=== PATIENT | male | born 1965 | race Caucasian/White ===

== ENCOUNTER 2016-09-30 05:15 | Emergency (ER) | payer OTHER ==
[~2016-09-30] VITALS: Ht 175.3 cm; Wt 75.7 kg
[~2016-09-30 05:15] MED LIST: DOCU-67 PO
[2016-09-30 05:25] VITALS: BP 163/109
--- NOTE | 2016-09-30 06:13 | NUR ---
51 Y/O M W/C/O PAIN TO L CALF X 3 DAYS. DENIES ANY INJURY, OR SOB. PT ON MONITOR, DENIES ANY MED HX. ON YARD JOCKEY, ER MADE AWARE.
--- NOTE | 2016-09-30 06:14 | NUR ---
PT TAKEN TO BED 7
--- NOTE | 2016-09-30 07:00 | NUR ---
Dr. Escamilla evaluating patient at bedside.
--- NOTE | 2016-09-30 07:09 | NUR ---
Pt report given to EFFIE JHAVERI. Transfer of care at this time.
[2016-09-30] MEDS ORDERED: KETOROLAC 60 MG/2 ML VIAL IM ONE (07:10)
[2016-09-30] MEDS ORDERED: ACETAMINOPHEN EXTRA STRENGTH 500 MG TAB PO ONE (07:10)
[2016-09-30] MEDS ORDERED: CYCLOBENZAPRINE 10 MG TAB PO ONE (07:10)
--- NOTE | 2016-09-30 07:19 | NUR ---
Ultrasound at bedside.
--- NOTE | 2016-09-30 07:37 | NUR ---
PT AMBULATED TO RESTROOM.
--- NOTE | 2016-09-30 07:43 | NUR ---
Pt placed in position of comfort. All needs addressed.
--- NOTE | 2016-09-30 08:20 | NUR ---
Patient discharged with v/s stable. Written and verbal after care instructions given and explained. Patient alert, oriented and verbalized understanding of instructions. Ambulatory with steady gait. All questions addressed prior to discharge. ID band removed. Patient advised to follow up with PMD. Rx of NORCO AND FLEXERIL given. Patient educated on indication of medication including possible reaction and side effects. Opportunity to ask questions provided and answered.
[2016-09-30 08:21] VITALS: BP 148/97
== END 2016-09-30 08:20 | disposition home or self-care (01) ==
LOC: MED 05:15
DX: R25.2 Cramp and spasm (principal)
CPT/HCPCS: 93926; 93971; 96372; 99284; J1885; Q0092

== ENCOUNTER 2017-08-24 19:30 | Emergency (ER) | payer OTHER ==
[~2017-08-24] VITALS: Ht 175.3 cm; Wt 81.6 kg
[2017-08-24 19:30] VITALS: BP 157/100
[~2017-08-24 19:30] MED LIST changes: +DOCU-299 PO; -DOCU-67 PO
[2017-08-24] MEDS: KETOROLAC 60 MG/2 ML VIAL IM ONE (21:05)
[2017-08-24 22:30] VITALS: BP 127/81
[2017-08-24] MEDS: LIDOCAINE/EPI 1% 1:100000 20 ML VIAL INJ ONE (22:38)
== END 2017-08-24 22:30 | disposition home or self-care (01) ==
LOC: MED 19:30
DX: S01.01XA Laceration without foreign body of scalp, initial encounter (principal); M19.90 Unspecified osteoarthritis, unspecified site; Z79.899 Other long term (current) drug therapy; Z87.442 Personal history of urinary calculi; W22.8XXA Striking against or struck by other objects, initial encounter; Y93.89 Activity, other specified; Y92.89 Other specified places as the place of occurrence of the external cause; Y99.8 Other external cause status
CPT/HCPCS: 12002; 70450; 72125; 90471; 90715; 96372; 99284; J1885; J2001

== ENCOUNTER 2017-08-28 09:18 | Emergency (ER) | payer OTHER ==
[~2017-08-28] VITALS: Ht 175.3 cm; Wt 79.2 kg
[2017-08-28 09:36] VITALS: BP 146/83
--- NOTE | 2017-08-28 09:42 | NUR ---
AMBULATE TO BED 9, REPORT GIVEN TO DAVI VYAS
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
--- NOTE | 2017-08-28 10:00 | NUR ---
Patient being evaluated by physician at bedside.
[2017-08-28 10:17] VITALS: BP 144/80
== END 2017-08-28 10:17 | disposition home or self-care (01) ==
LOC: MED 09:18
DX: S01.01XD Laceration without foreign body of scalp, subsequent encounter (principal); Z87.442 Personal history of urinary calculi; Z79.899 Other long term (current) drug therapy; M19.90 Unspecified osteoarthritis, unspecified site; W22.8XXA Striking against or struck by other objects, initial encounter; Y93.89 Activity, other specified; Y92.89 Other specified places as the place of occurrence of the external cause; Y99.8 Other external cause status
CPT/HCPCS: 99283

== ENCOUNTER 2017-12-07 22:34 | Emergency (ER) | payer OTHER ==
[~2017-12-07] VITALS: Ht 175.3 cm; Wt 76.2 kg
[2017-12-07 22:38] VITALS: BP 140/85
--- NOTE | 2017-12-07 22:42 | NUR ---
PT FILED REPORT WITH [place] PD # [id number]
--- NOTE | 2017-12-07 22:42 | NUR ---
PT ASSISTED BACK TO LOBBY. PT IN STABLE CONDITION.
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
--- NOTE | 2017-12-08 00:22 | NUR ---
PT ASLEEP IN BED, AROUSABLE. COMFORTABLE DENIES PAIN @ THIS TIME, WILL CONTINUE TO MONITOR.
--- NOTE | 2017-12-08 00:44 | NUR ---
Dr. Ureña evalauting patient at bedside.
[2017-12-08] MEDS ORDERED: KETOROLAC 30 MG/ML VIAL IM ONE (00:55)
--- NOTE | 2017-12-08 01:20 | NUR ---
XRAY AT BEDSIDE
--- NOTE | 2017-12-08 01:48 | NUR ---
Patient discharged with v/s stable. Written and verbal after care instructions given and explained. Patient alert, oriented and verbalized understanding of instructions. Ambulatory with steady gait. All questions addressed prior to discharge. ID band removed. Patient advised to follow up with PMD. Rx of NAPROSYN 500 MG given. Patient educated on indication of medication including possible reaction and side effects. Opportunity to ask questions provided and answered.
[2017-12-08 01:49] VITALS: BP 136/91
== END 2017-12-08 01:48 | disposition home or self-care (01) ==
LOC: MED 22:34
DX: R07.89 Other chest pain (principal)
CPT/HCPCS: 71045; 96372; 99283; J1885; Q0092

== ENCOUNTER 2018-02-26 23:55 | Emergency (ER) | payer OTHER ==
[~2018-02-26] VITALS: Ht 175.3 cm; Wt 74.8 kg
[2018-02-27 00:09] VITALS: BP 124/78
--- NOTE | 2018-02-27 00:14 | NUR ---
MEGHA BOSCH AT BEDSIDE FOR MSE
[2018-02-27] MEDS ORDERED: SILVER NITRATE APPLICATOR 1 EA SWAB TP ONE (00:20)
--- NOTE | 2018-02-27 00:21 | NUR ---
SILVER NITRATE APPLICATOR AT BEDSIDE FOR
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
[2018-02-27 01:18] VITALS: BP 114/78
--- NOTE | 2018-02-27 01:18 | NUR ---
Patient discharged with v/s stable. Written and verbal after care instructions given and explained. Patient alert, oriented and verbalized understanding of instructions. Ambulatory with steady gait. All questions addressed prior to discharge. ID band removed. Patient advised to follow up with PMD. Rx of OCEAN 0.65% NASAL SOLUTION given. Patient educated on indication of medication including possible reaction and side effects. Opportunity to ask questions provided and answered.
== END 2018-02-27 01:18 | disposition home or self-care (01) ==
LOC: MED 23:55
DX: R04.0 Epistaxis (principal); R42 Dizziness and giddiness; R11.0 Nausea; Z79.899 Other long term (current) drug therapy; Z87.442 Personal history of urinary calculi
CPT/HCPCS: 30901; 99283; 99284

== ENCOUNTER 2019-05-12 09:41 | Emergency (ER) | payer OTHER ==
[~2019-05-12] VITALS: Ht 175.3 cm; Wt 77.1 kg
[2019-05-12 09:50] VITALS: BP 100/62
[2019-05-12 09:55] VITALS: BP 113/79
--- NOTE | 2019-05-12 10:23 | NUR ---
54 Y/O M C/O COUGHING, NAUSEA, FEVER X 3 DAYS. PT WENT TO URGENT CARE AND WAS GIVEN ABX, COUGH MEDICINE. PT STATES HE IS FEELING WORSE, PAIN WITH COUGHING IN ABDOMEN. PT PUT IN GOWN OXYGEN 98% ROOM AIR, LUNG SOUNDS CLEAR THROUGHOUT. EILEEN
--- NOTE | 2019-05-12 11:04 | NUR ---
PT RESTING IN BED, SIDE RAIL X1
--- NOTE | 2019-05-12 12:13 | NUR ---
PT RESTING IN BED, SIDE RAIL X1
[2019-05-12 12:44] VITALS: BP 113/79
--- NOTE | 2019-05-12 12:44 | NUR ---
Patient discharged with v/s stable. Written and verbal after care instructions given and explained. Patient verbalized understanding. Ambulatory with steady gait. All questions addressed prior to discharge. Advised to follow up with PMD.
== END 2019-05-12 12:44 | disposition home or self-care (01) ==
LOC: MED 09:41
DX: J06.9 Acute upper respiratory infection, unspecified (principal)
CPT/HCPCS: 71046; 99283

== ENCOUNTER 2019-05-18 12:08 | Inpatient (IN) | payer OTHER ==
[~2019-05-18] VITALS: Ht 175.3 cm; Wt 75.3 kg
[2019-05-18 12:17] VITALS: BP 136/87
[2019-05-18] MEDS ORDERED: ASPIRIN 81 MG TAB.CHEW PO ONE ×2 (12:30→15:45)
[2019-05-18] MEDS ORDERED: NACL 0.9% 1,000 ML IV ONE (12:30)
[2019-05-18] MEDS ORDERED: KETOROLAC 30 MG/ML VIAL IVP ONE (12:30)
[2019-05-18 13:00] LABS: BASOPHILS % (AUTO) 0.6 % (0.0-2.0); EOSINOPHILS % (AUTO) 0.8 % (0.0-4.0); HEMATOCRIT 50.6 % (36-52); HEMOGLOBIN 16.6 g/dL (12.0-18.0); LYMPHOCYTES # (AUTO) 1.4 K/uL (2.0-11.5); LYMPHOCYTES % (AUTO) 33.6 % (20.5-51.1); MEAN CORPUSCULAR HEMOGLOBIN 29 pg (27-31); MEAN CORPUSCULAR HGB CONC 33 g/dL (33-37); MEAN CORPUSCULAR VOLUME 88.9 fL (80-94); MONOCYTES # (AUTO) 0.5 K/uL (0.8-1.0); MONOCYTES % (AUTO) 10.9 % (1.7-9.3); NEUTROPHILS # (AUTO) 2.3 K/uL (1.8-7.7); NEUTROPHILS % (AUTO) 54.1 % (42.2-75.2); PLATELET COUNT (AUTO) 278 K/uL (140-450); RED BLOOD CELL COUNT(AUTO) 5.69 MIL/uL (4.20-6.10); RED CELL DISTRIBUTION WIDTH 14.3 % (11.6-13.7); WHITE BLOOD COUNT (AUTO) 4.3 K/uL (4.8-10.8)
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
[2019-05-18 13:16] LABS: ALBUMIN 3.8 g/dL (3.4-5.0); ANION GAP 14.2 (8-16); CARBON DIOXIDE 26.2 mmol/L (21-32); CREATININE 0.9 mg/dL (0.6-1.3); POTASSIUM 4.4 mmol/L (3.5-5.1); TOTAL BILIRUBIN 0.3 mg/dL (0.0-1.0)
[2019-05-18] MEDS ORDERED: LORazepam 2 MG/ML VIAL IVP ONE (14:10)
[2019-05-18] MEDS ORDERED: MORPHINE SULFATE 2 MG/ML SYR IVP ONE (15:40)
[2019-05-18] MEDS ORDERED: METOPROLOL 5 MG/5 ML VIAL IVP ONE (15:40)
[2019-05-18] MEDS ORDERED: NITROGLYCERIN 2% 1 GM PKT TP ONE (15:40)
[2019-05-18] MEDS ORDERED: IPRATROPIUM 0.02% 0.5 MG/2.5 ML NEBU INH PRN (16:00)
[2019-05-18] MEDS ORDERED: diphenhydrAMINE 50 MG/ML VIAL IVP PRN (16:00)
[2019-05-18] MEDS ORDERED: MAG SULF 2000 MG/WATER PREMIX 50 ML IV PRN (16:00)
[2019-05-18] MEDS ORDERED: BISACODYL 10 MG SUPP RC PRN (16:00)
[2019-05-18] MEDS ORDERED: cloNIDine 0.1 MG TAB PO PRN (16:00)
[2019-05-18] MEDS ORDERED: MAGNESIUM OXIDE 400 MG TAB PO PRN (16:00)
[2019-05-18] MEDS ORDERED: HYDROcodone/APAP 5/325 MG 1 TAB TAB PO PRN ×2 (16:00)
[2019-05-18] MEDS ORDERED: ZOLPIDEM 5 MG TAB PO PRN (16:00)
[2019-05-18] MEDS ORDERED: POTASSIUM CHLORIDE 10 MEQ TABER PO PRN (16:00)
[2019-05-18] MEDS ORDERED: ALUMINUM HYD/MAG/SIMETHICONE 30 ML UDC PO PRN (16:00)
[2019-05-18] MEDS ORDERED: ACETAMINOPHEN 650 MG SUPP RC PRN (16:00)
[2019-05-18] MEDS ORDERED: LORazepam 2 MG/ML VIAL IVP PRN (16:00)
[2019-05-18] MEDS ORDERED: guaiFENesin DM 200/20 MG-10 ML 10 ML UDC PO PRN (16:00)
[2019-05-18] MEDS ORDERED: SODIUM PHOSPHATE 118 ML ENEM RC PRN (16:00)
[2019-05-18] MEDS ORDERED: ONDANSETRON 4 MG/2 ML VIAL IVP PRN (16:00)
[2019-05-18] MEDS ORDERED: ALBUTEROL 0.083% 2.5 MG/3 ML NEBU INH PRN (16:00)
[2019-05-18] MEDS ORDERED: DOCUSATE SODIUM 250 MG GELCAP PO PRN (16:00)
[2019-05-18] MEDS ORDERED: MORPHINE SULFATE 2 MG/ML SYR IVP PRN (16:00)
[2019-05-18 17:00] VITALS: BP 124/76
--- NOTE | 2019-05-18 17:00 | NUR ---
Patient will be admitted to care of DR VINES. Admited to TELE. Will go to room 119A. Belongings list completed. Report to DAVI MORFIN.
--- NOTE | 2019-05-18 17:00 | NUR ---
RECEIVED BEDSIDE REPORT FROM ER NURSE, WU, PT IS STABLE, R AC 22G SALINE LOCK, AMBULATED FROM GURNEY TO BED, NO SIGNS OF RESPIRATORY DISTRESS NOTED, AA0X4, INTRODUCE SELF, INTRODUCE PT TO ROOM, UPDATE WHITE BOARD, AT BEDSIDE, CALL LIGHT WITHIN REACH.
--- NOTE | 2019-05-18 19:30 | NUR ---
GAVE BEDSIDE REPORT TO NIGHT NURSE FOR CONTINUITY OF CARE, PT IS STABLE
[2019-05-18 20:00] VITALS: BP 96/58
[2019-05-18] MEDS: ACETAMINOPHEN 325 MG TAB PO PRN (21:27)
--- NOTE | 2019-05-18 21:35 | NUR ---
PT COMPLAINING OF HEADACHE AND NAUSEATED BUT NO VOMITING, MEDICATED WITH TYLENOL AND ZOFRAN, DENIES CHEST PAIN, NO SOB NOTED, MONITORED CLOSELY.
--- NOTE | 2019-05-18 22:30 | NUR ---
PT COMPLAINING OF HEADACHE AND CHEST PAIN 10/17, PUT ON O2 2L NC, VITAL SIGNS TAKEN:BP-128/85, HR-57, RR-18, SAT-97%, MEDICATED PRN WITH MORPHINE IVP, MONITORED CLOSELY.
[2019-05-18] MEDS ORDERED: LOVENOX 1MG/KG Q12H SUBQ ONE (22:38)
[2019-05-18] MEDS ORDERED: NITROGLYCERIN 2% 1 GM PKT TP PRN (22:40)
--- NOTE | 2019-05-18 22:47 | NUR ---
CRITICAL TROPONIN RESULT RELAYED TO DR VINES, NEW ORDERS RECEIVED, CHARGE NURSE ASAEL AND HYDRAULICS TEACHER MADE AWARE OF TX ORDER TO ICU.
--- NOTE | 2019-05-18 23:05 | NUR ---
PT RECEIVED FROM WILY TOMLINSON. PT TRANSFERRED FROM TELEMETRY TO ICU 3. NO DISTRESS NOTED. PT AWAKE, ALERT, LETHARGIC. CALM AND COOPERATIVE. HEART SOUNDS HEARD S1&S2. BRADYCARDIA ON MONITOR. LUNG SOUNDS CLEAR. RESPIRATIONS EVEN AND UNLABORED. ABDOMEN SOFT AND ROUND, BOWEL SOUNDS ACTIVE. PT C/O OF 7/10 CHEST PAIN. IV SITE L AC 22 GAUGE, INTACT, GOOD BLOOD RETURN. ABLE TO USE URINAL. SKIN INTACT, WARM AND DRY, CAP REFILL LESS THAN 2 SECONDS. HOB 30 DEGREES. BED LOCKED IN LOWEST POSITION. WILL CONTINUE TO MONITOR.
--- NOTE | 2019-05-18 23:05 | NUR ---
PT AWAKE VERBALLY RESPONSIVE, TRANSFERRED TO ICU BED 3 ACCOMPANIED BY , ABLE TO TRANSFER SELF TO BED, REPORT GIVEN TO DAVI WOLF.
[2019-05-18] MEDS ORDERED: ENOXAPARIN 80 MG/0.8 ML SYR SUBQ SCH (23:30)
[2019-05-18] MEDS ORDERED: NACL 0.9% 500 ML IV ONE (23:40)
[2019-05-18] MEDS ORDERED: NITROGLYCERIN 0.4 MG TAB SL PRN (23:40)
[2019-05-18] MEDS ORDERED: NITROGLYCERIN 0.1 MG/HR PATCH TD SCH (23:40)
[2019-05-19] VITALS (45 sets, daily range): BP systolic 99–144; BP diastolic 61–90
[2019-05-19] MEDS ORDERED: MORPHINE SULFATE 4 MG/ML SYR IVP SCH
--- NOTE | 2019-05-19 | NUR ---
PHONE CALL FROM DR MOLINA; CASE HARDENER, UPDATED ON PTS PRESENT CONDITION.QUESTIONS ANSWERED.MD ALSO MADE AWARE THAT PTS SAID PT WAS HAVING COUGH X 5DAYS. ORDERS RECEIVED TO START PT ON HEPARIN DRIP AND NITROGLYCERIN DRIP
[2019-05-19] MEDS ORDERED: HEPARIN PER PHARMACY MC PRN (00:05)
[2019-05-19] MEDS ORDERED: hePARIN / DEXT 5% PREMIX 250 ML IV SCH ×2 (00:05→11:00)
[2019-05-19] MEDS ORDERED: NITROGLYCERIN 50 MG/D5W PREMIX 250 ML IV PRN (00:05)
--- NOTE | 2019-05-19 00:16 | NUR ---
NITROGLYCERIN DRIP STARTED AT 5MCG/KG/MIN, DRY WEIGHT 74.7 KG. WILL CONTINUE TO MONITOR. Addendum: 05/19/19 at 0152 by Harvinder Dye RN CHARTED ON WRONG TIME, CORRECT TIME NITRO DRIP STARTED AT 0116
--- NOTE | 2019-05-19 00:32 | NUR ---
PHONE CALL TO DR Matt ORELLANA; MADE AWARE THAT PHARMACIST CALLED AND WE CAN NOT START THE HEPARIN DRIP UNTIL MORNING SINCE PT ALREADY RECEIVED LOVENOX 80MG SUBQ; SAID OK
--- NOTE | 2019-05-19 01:13 | NUR ---
PHONE CALL TO DR Matt ORELLANA,MANAGER HVAC. HR OF PT IS 50 PER PROTOCOL OF NITROGLYCERIN DRIP; HOLD IF HR 60.DR ORELLANA SAID TO GO AHEAD AND START THE NITROGLYCERIN DRIP.
--- NOTE | 2019-05-19 01:16 | NUR ---
NITROGLYCERIN DRIP STARTED AT 5MCG/KG/MIN, DRY WEIGHT 74.7 KG. WILL CONTINUE TO MONITOR.
--- NOTE | 2019-05-19 03:15 | NUR ---
PT HAS EYES CLOSED, RESPIRATIONS EVEN AND UNLABORED. CHEST RISE IS SYMMETRICAL. VITALS SIGNS STABLE. WILL CONTINUE TO MONITOR.
--- NOTE | 2019-05-19 05:47 | NUR ---
SPOKE WITH PHARMACY. BECAUSE LOVENOX WAS GIVEN AT 2300, PHARMACY SAID OKAY TO START HEPARIN DRIP AT 1100.
[2019-05-19 06:56] LABS: PROTHROMBIN TIME 10.6 secs (10.8-13.4)
--- NOTE | 2019-05-19 07:15 | NUR ---
REPORT GIVEN TO AM SHIFT NURSE FOR CONTINUITY OF CARE.
--- NOTE | 2019-05-19 07:20 | NUR ---
RECEIVED BEDSIDE REPORT FROM BACK HOE MACHINE OPERATOR RN, LUCIANO. PT IS SLEEPING, EASILY ROUSED, OX4. DENIES CHEST PAIN AND NAUSEA AT THIS TIME. L AC 22G RUNNING NITROGLYCERIN AT 5MCG/MIN. R FA 20G, FLUSHED, PATENT, SL. S1S2 HEARD, SB ON MONITOR, LUNG SOUNDS CLEAR. BOWELS SOUNDS ACTIVE. CALL LIGHT WITHIN REACH.
[2019-05-19] MEDS: ACETAMINOPHEN 325 MG TAB PO PRN (07:50)
--- NOTE | 2019-05-19 07:54 | NUR ---
PATIENT HAS BEEN SCREENED AND CATEGORIZED MODERATE NUTRITION RISK. PATIENT WILL BE SEEN WITHIN 3-5 DAYS OF ADMISSION. 05/21/19 - 05/23/19 HERO KIRAN MBA,RD
--- NOTE | 2019-05-19 08:00 | NUR ---
PT C/O HEADACHE, TYLENOL GIVEN. ASSISTED PT STANDING UP AND USED URINAL.
[2019-05-19 08:37] LABS: BASOPHILS % (AUTO) 0.4 % (0.0-2.0); EOSINOPHILS % (AUTO) 0.5 % (0.0-4.0); HEMATOCRIT 42.5 % (36-52); HEMOGLOBIN 13.7 g/dL (12.0-18.0); LYMPHOCYTES # (AUTO) 1.4 K/uL (2.0-11.5); LYMPHOCYTES % (AUTO) 22.2 % (20.5-51.1); MEAN CORPUSCULAR HEMOGLOBIN 29 pg (27-31); MEAN CORPUSCULAR HGB CONC 32 g/dL (33-37); MEAN CORPUSCULAR VOLUME 89.6 fL (80-94); MONOCYTES # (AUTO) 0.6 K/uL (0.8-1.0); MONOCYTES % (AUTO) 9.5 % (1.7-9.3); NEUTROPHILS # (AUTO) 4.1 K/uL (1.8-7.7); NEUTROPHILS % (AUTO) 67.4 % (42.2-75.2); PLATELET COUNT (AUTO) 262 K/uL (140-450); RED BLOOD CELL COUNT(AUTO) 4.75 MIL/uL (4.20-6.10); RED CELL DISTRIBUTION WIDTH 14.1 % (11.6-13.7); WHITE BLOOD COUNT (AUTO) 6.1 K/uL (4.8-10.8)
[2019-05-19] MEDS ORDERED: ASPIRIN 81 MG TAB.CHEW PO SCH (09:00)
[2019-05-19] MEDS ORDERED: LOVENOX 1MG/KG Q12H SUBQ SCH (09:00)
[2019-05-19] MEDS ORDERED: CARVEDILOL 3.125 MG TAB PO SCH (09:00)
[2019-05-19] MEDS ORDERED: ATORVASTATIN 20 MG TAB PO SCH (09:08)
--- NOTE | 2019-05-19 09:17 | NUR ---
DR VINES SEEN AND ASSESSED PT. AWARE OF THE TROP TRENDING DOWN TO 12.205
--- NOTE | 2019-05-19 09:42 | NUR ---
DR REYNA Fontana CAME AND ASSESSED PT. DR ORELLAAN SAID TO HOLD COREG PER PARAMETER IF HR LESS THAN 60. KEEP PT NPO. ALSO DO NOT START HEPARIN DRIP SINCE PT IS GETTING TRANSFERRED FOR ONCOLOGY RADIATION PHYSICIAN.
--- NOTE | 2019-05-19 10:47 | NUR ---
CALLED [facility] SPOKE WITH THU ,NOTIFIED HER THAT PATIENT HAS A TRANSFER ORDER FOR CARDIAC CATH. PER THU PROVIDED AN AUTH FOR TRANSPORT [id number] AND AUTH FOR [place] [id number]. CALLED [facility] SPOKE WITH SOO ISIDRO GONSALVES AT [phone] NOTIFIED HER THAT PT NEEDS CARDIAC CATH TO BE DONE [place] ACCEPTING DR WILL BE DR ROBB AND CIGAR TOBACCO PROCESSING SUPERVISOR WILL BE DR REYNA Fontana AND ALSO DR VINES SPOKE WITH HER AND EXPLAIN THE URGENT FOR CARDIAC CATH. PER BRINA SHE HAS NO TELE BED AT THIS TIME BUT WILL TRY HE BEST TO GET THE PATIENT TODAY. FAXED TO [facility] [phone] DR MACE AND CIGAR TOBACCO PROCESSING SUPERVISOR DR REYNA Fontana CHARGE NURSE TO FOLLOW
[2019-05-19] MEDS ORDERED: DEXT 5% / NACL 0.9% 500 ML IV SCH (10:50)
--- NOTE | 2019-05-19 11:05 | NUR ---
CONFIRMED WITH DR ORELLNAA, STOP NITROGLYCERIN DRIP PRIOR TO TRANSFER. PT WILL GO TO TUB OPERATOR STRAIGHT.
--- NOTE | 2019-05-19 11:10 | NUR ---
CALLED GEOVANY IN [facility], REPORT GIVEN.
[2019-05-19] MEDS ORDERED: ATOR20TA PO (11:13)
[2019-05-19] MEDS ORDERED: ASPI-1718 PO (11:13)
[2019-05-19] MEDS ORDERED: CARV3.12 PO (11:15)
--- NOTE | 2019-05-19 11:17 | NUR ---
[facility] IS HERE PICKING UP PT.
--- NOTE | 2019-05-19 11:25 | NUR ---
PT LEFT WITH HIS BELONGINGS WITH [facility], AT BEDSIDE, TO [facility] SUSTAINABLE LANDSCAPE ARCHITECT. DR ORELLANA IS AWARE.
== END 2019-05-19 11:25 | disposition short-term general hospital (02) | DRG 190 ==
LOC: MED 12:08 → MTU 16:00 → MIC 22:56
PROVIDERS: ADMIT Internal Medicine Pulmonary Disease; ATTEND Internal Medicine Pulmonary Disease
DX: I21.4 Non-ST elevation (NSTEMI) myocardial infarction (principal); M19.90 Unspecified osteoarthritis, unspecified site; I20.0 Unstable angina; Z87.442 Personal history of urinary calculi
CPT/HCPCS: 36415; 71045; 80053; 82948; 84484; 85025; 85610; 85730; 87081; 93005; 96361; 96374; 96375; 99291; J1650; J1885; J2060; J2270; J2405; J3490; J7030; J7042; Q0092

== ENCOUNTER 2020-12-27 18:16 | Emergency (ER) | payer OTHER ==
[~2020-12-27 18:16] MED LIST changes: +ASPI-1822 PO; +ATOR20TA PO; +CARV3.12 PO
--- NOTE | 2020-12-27 19:20 | NUR ---
CALLED PATIENT BACK FOR TRIAGE, NO RESPONSE.
--- NOTE | 2020-12-27 20:00 | NUR ---
CALLED PATIENT BACK FOR TRIAGE, NO RESPONSE.
--- NOTE | 2020-12-27 20:30 | NUR ---
PATIENT LEFT WITHOUT BEING SEEN BY DR. LERNER. NO FURTHER CARE PROVIDED FOR PATIENT.
== END 2020-12-27 20:30 | disposition left against medical advice (07) ==
LOC: MED 18:16
DX: Z53.21 Procedure and treatment not carried out due to patient leaving prior to being seen by health care provider (principal)

== ENCOUNTER 2021-01-13 21:00 | Emergency (ER) | payer OTHER ==
[~2021-01-13] VITALS: Ht 175.3 cm; Wt 72.6 kg
[2021-01-13 21:05] VITALS: BP 129/76
--- NOTE | 2021-01-13 21:05 | NUR ---
to bed via wheelchair
--- NOTE | 2021-01-13 21:10 | NUR ---
PT. IS A 56 Y/O MALE THAT CAME INTO ED WITH C/O OF RIGHT SIDE FLANK PAIN. PT. STATES PAIN IS LOCALIZED IN RIGHT SIDE FLANK. PT. RATES PAIN AT 10/10 ON THE PAIN SCALE AT THIS TIME. PT. STATES THAT THE PAIN WAS A SUDDEN ONSET OF PAIN 4 HOURS AGO. DENIES N/V/D/FEVER. SKIN IS PINK/WARM/DRY; AAOX4 WITH EVEN AND STEADY GAIT; HR EVEN AND REGULAR; PT DENIES ANY FEVER, CP, SOB, OR COUGH AT THIS TIME; VSS; PATIENT POSITIONED FOR COMFORT; HOB ELEVATED; BEDRAILS UP X2; BED DOWN. ER MD MADE AWARE OF PT STATUS. PMH: DIABETES AND "HEART SURGERIES" ALLERGIES: NKA
--- NOTE | 2021-01-13 21:28 | NUR ---
Dr. Romo examining patient.
--- NOTE | 2021-01-13 22:02 | NUR ---
XRAY AT BEDSIDE
[2021-01-13 22:18] LABS: BASOPHILS % (AUTO) 0.5 % (0.0-2.0); EOSINOPHILS # (AUTO) 0.1 K/uL (0-0.4); EOSINOPHILS % (AUTO) 1.1 % (0.0-4.0); HEMATOCRIT 40.5 % (36-52); HEMOGLOBIN 13.2 g/dL (12.0-18.0); LYMPHOCYTES # (AUTO) 1.1 K/uL (2.0-11.5); LYMPHOCYTES % (AUTO) 23.1 % (20.5-51.1); MEAN CORPUSCULAR HEMOGLOBIN 30 pg (27-31); MEAN CORPUSCULAR HGB CONC 33 g/dL (33-37); MEAN CORPUSCULAR VOLUME 90.5 fL (80-94); MONOCYTES # (AUTO) 0.4 K/uL (0.8-1.0); MONOCYTES % (AUTO) 8.5 % (1.7-9.3); NEUTROPHILS # (AUTO) 3.1 K/uL (1.8-7.7); NEUTROPHILS % (AUTO) 66.8 % (42.2-75.2); PLATELET COUNT (AUTO) 219 K/uL (140-450); RED BLOOD CELL COUNT(AUTO) 4.48 MIL/uL (4.20-6.10); RED CELL DISTRIBUTION WIDTH 15.6 % (11.6-13.7); WHITE BLOOD COUNT (AUTO) 4.7 K/uL (4.8-10.8)
[2021-01-13] MEDS: MORPHINE SULFATE 4 MG/ML SYR IVP ONE (22:33)
[2021-01-13] MEDS: METOCLOPRAMIDE 10 MG/2 ML INJ VIAL IVP ONE (22:33)
[2021-01-13 22:36] LABS: ALBUMIN 3.7 g/dL (3.4-5.0); ANION GAP 13.9 (8-16); CARBON DIOXIDE 22.9 mmol/L (21-32); CREATININE 0.7 mg/dL (0.6-1.3); POTASSIUM 3.8 mmol/L (3.5-5.1); TOTAL BILIRUBIN 0.3 mg/dL (0.0-1.0)
--- NOTE | 2021-01-13 22:45 | NUR ---
URINE SAMPLE COLLECTED AND WALKED TO LAB BY CASS CARDOSO
[2021-01-13 22:58] LABS: APPEARANCE,URINE CLEAR (CLEAR); BILIRUBIN,URINE NEGATIVE (NEGATIVE); BLOOD, URINE NEGATIVE (NEGATIVE); COLOR,URINE YELLOW (YELLOW); LEUKOCYTE ESTERASE ,URINE NEGATIVE (NEGATIVE); NITRITE, URINE NEGATIVE (NEGATIVE); UGLUCOSE 3+ (NEGATIVE)
[2021-01-13 23:08] LABS: RBC,URINE 0-5 /HPF (0-5); WBC,URINE 0-5 /HPF (0-5)
--- NOTE | 2021-01-14 00:11 | NUR ---
PT. IN SUPINE POSITION LAYING COMFORTABLY WITH EYES CLOSED. VOICES NO COMPLAINTS AT THIS TIME. SPOUSE AT BEDSIDE.
[2021-01-14] MEDS ORDERED: IBUP-2213 PO (02:00)
[2021-01-14] MEDS ORDERED: CYCL-711 PO (02:00)
[2021-01-14] MEDS: MORPHINE SULFATE 4 MG/ML SYR IVP ONE (02:08)
[2021-01-14 02:25] VITALS: BP 120/75
--- NOTE | 2021-01-14 02:25 | NUR ---
Patient discharged with v/s stable. Written and verbal after care instructions given and explained. Patient alert, oriented and verbalized understanding of instructions. Ambulatory with steady gait. All questions addressed prior to discharge. ID band removed. Patient advised to follow up with PMD. Rx of FLEXERIL AND IBUPROFEN given. Patient educated on indication of medication including possible reaction and side effects. Opportunity to ask questions provided and answered.
== END 2021-01-14 02:25 | disposition home or self-care (01) ==
LOC: MED 21:00
DX: M54.50 Low back pain, unspecified (principal); I10 Essential (primary) hypertension; Z98.890 Other specified postprocedural states
CPT/HCPCS: 36415; 71045; 74150; 80053; 81001; 83690; 84484; 85025; 93005; 96374; 96375; 96376; 99285; J2270; J2765; Q0092

== ENCOUNTER 2021-08-29 21:56 | Emergency (ER) | payer OTHER ==
[~2021-08-29] VITALS: Ht 175.3 cm; Wt 72.6 kg
[~2021-08-29 21:56] MED LIST changes: +CYCL-711 PO; +IBUP-2213 PO
[2021-08-29 21:57] VITALS: BP 135/78
--- NOTE | 2021-08-29 21:57 | NUR ---
56 YO/M BIBA FROM HOME W C/O R LOWER FLANK PAIN 10/10 SHARP, NON-RAD, CONSTANT SINCE 0900, +BLOOD IN URINE AND BURNING URINATION. HX KIDNEY STONES PASSED X1 KIDNEY STONE X2 DAYS AGO. PT DENIES FEVERS, CHILLS, N/V/D. PT TOOK X2 TYLENOL TABS AT 1400 W/O RELIEF. PT CONNECTED TO MONITOR. WILL CONTINUE TO MONITOR. PMH: DIABETES, ARTHRITIS, KIDNEY STONES, HEART STENTS X2 ALLERGIES: DENIES
--- NOTE | 2021-08-29 21:58 | NUR ---
BIBA TAKEN TO BED #4
--- NOTE | 2021-08-29 22:20 | NUR ---
labs drawn and handed to Dennoo.
[2021-08-29] MEDS ORDERED: KETOROLAC 30 MG/ML VIAL IVP ONE (22:30)
[2021-08-29] MEDS ORDERED: MORPHINE SULFATE 4 MG/ML SYR IVP ONE (22:30)
[2021-08-29 22:42] LABS: APPEARANCE,URINE SL CLOUDY (CLEAR); BILIRUBIN,URINE NEGATIVE (NEGATIVE); BLOOD, URINE 3+ (NEGATIVE); COLOR,URINE YELLOW (YELLOW); LEUKOCYTE ESTERASE ,URINE NEGATIVE (NEGATIVE); NITRITE, URINE NEGATIVE (NEGATIVE); UGLUCOSE 1+ (NEGATIVE)
[2021-08-29 22:45] LABS: BASOPHILS % (AUTO) 0.4 % (0.0-2.0); EOSINOPHILS # (AUTO) 0.1 K/uL (0-0.4); EOSINOPHILS % (AUTO) 1.4 % (0.0-4.0); HEMATOCRIT 40.7 % (36-52); HEMOGLOBIN 13.4 g/dL (12.0-18.0); LYMPHOCYTES # (AUTO) 1.4 K/uL (2.0-11.5); LYMPHOCYTES % (AUTO) 23.1 % (20.5-51.1); MEAN CORPUSCULAR HEMOGLOBIN 29 pg (27-31); MEAN CORPUSCULAR HGB CONC 33 g/dL (33-37); MEAN CORPUSCULAR VOLUME 87.7 fL (80-94); MONOCYTES # (AUTO) 0.7 K/uL (0.8-1.0); MONOCYTES % (AUTO) 11.5 % (1.7-9.3); NEUTROPHILS # (AUTO) 3.8 K/uL (1.8-7.7); NEUTROPHILS % (AUTO) 63.6 % (42.2-75.2); PLATELET COUNT (AUTO) 220 K/uL (140-450); RED BLOOD CELL COUNT(AUTO) 4.64 MIL/uL (4.20-6.10); RED CELL DISTRIBUTION WIDTH 15.3 % (11.6-13.7)
--- NOTE | 2021-08-29 22:50 | NUR ---
US AT BEDSIDE
[2021-08-29 22:52] LABS: RBC,URINE TOO NUMEROUS TO COUN /HPF (0-5)
[2021-08-29 22:53] LABS: WBC,URINE 0-5 /HPF (0-5)
[2021-08-29 23:04] LABS: ALBUMIN 3.6 g/dL (3.4-5.0); ANION GAP 11.4 (8-16); CARBON DIOXIDE 27.9 mmol/L (21-32); CREATININE 1.2 mg/dL (0.6-1.3); POTASSIUM 4.3 mmol/L (3.5-5.1); TOTAL BILIRUBIN 0.3 mg/dL (0.0-1.0)
[2021-08-29] MEDS ORDERED: IBUP-2213 PO (23:39)
[2021-08-29] MEDS ORDERED: ACET-5634 PO (23:39)
[2021-08-29] MEDS ORDERED: TAMS0.4C96 PO (23:41)
[2021-08-29] MEDS ORDERED: HYDROcodone/APAP 10/325 MG 1 TAB TAB PO ONE (23:45)
--- NOTE | 2021-08-29 23:50 | NUR ---
PT REPORTS FEELING MUCH BETTER, PAIN IMPROVEMENT.
[2021-08-30 00:25] VITALS: BP 147/72
--- NOTE | 2021-08-30 00:25 | NUR ---
Patient discharged with v/s stable. Written and verbal after care instructions given and explained. Patient alert, oriented and verbalized understanding of instructions. Ambulatory with steady gait. All questions addressed prior to discharge. ID band removed. Patient advised to follow up with PMD. Rx of FLOMAX, IBUPROFEN, PERCOCET given. Patient educated on indication of medication including possible reaction and side effects. Opportunity to ask questions provided and answered.
== END 2021-08-30 00:25 | disposition home or self-care (01) ==
LOC: MED 21:56
DX: N20.0 Calculus of kidney (principal); E11.9 Type 2 diabetes mellitus without complications; Z87.442 Personal history of urinary calculi; Z79.899 Other long term (current) drug therapy; Z79.82 Long term (current) use of aspirin
CPT/HCPCS: 36415; 76770; 80053; 81001; 83690; 85025; 96374; 96375; 99284; J1885; J2270; Q0092

== ENCOUNTER 2021-10-22 09:32 | Emergency (ER) | payer OTHER ==
[~2021-10-22] VITALS: Ht 175.3 cm; Wt 73.5 kg
[~2021-10-22 09:32] MED LIST changes: +ACET-5634 PO; +TAMS0.4C96 PO
[2021-10-22 09:42] VITALS: BP 113/40
--- NOTE | 2021-10-22 10:25 | NUR ---
PT W/C ASSISTED TO ER BED 3
--- NOTE | 2021-10-22 10:27 | NUR ---
X-Ray at bedside.
--- NOTE | 2021-10-22 10:41 | NUR ---
56 y/o male c/o of right foot pain. Patient is s/p tripping and falling off a curb last night. Patient has positive pedal pulses. Patient has positive sensation, movement and feeling. Patient is noted with slight swelling to top of right foot. Patient took Tylenol with no relief. Medical History: DM, HTN, CHOLESTEROL NKDA
--- NOTE | 2021-10-22 10:45 | NUR ---
56/M PRESENTS TO ED WITH C/O RIGHT FOOT PAIN S/P TRIPPING AND FALLING OFF A CURB LAST NIGHT. PATIENT REPORTS HX OF BREAKING SAME FOOT IN THE PAST IS CONCEREND, REPORTS TAKING TYLENOL LAST NIGHT WITH NO RELIEF. PATIENT W/C ASSISTED UPON ARRIVAL TO ED.
--- NOTE | 2021-10-22 11:04 | NUR ---
Dr. Araiza evaluating patient at bedside.
[2021-10-22] MEDS ORDERED: KETOROLAC 30 MG/ML VIAL IM ONE (11:10)
[2021-10-22] MEDS ORDERED: IBUP-2213 PO (11:38)
--- NOTE | 2021-10-22 11:41 | NUR ---
Dr. Araiza re-evaluating patient at bedside.
--- NOTE | 2021-10-22 11:47 | NUR ---
PER ER , PT PROVIDED WITH ONE ON ONE INSTRUCTIONS ON HOW TO USE CRUTCHES. PT RETURNED SAFE DEMONSTRATION. R POSTERIOR SHORT LEG SPLINT PLACED ON PT R FOOT. + CMS AFTER APPLICATION. PT TOLERATED SPLINT. CRUTCHES ADJUSTED TO PROPER HEIGHT AND ARM LENGTH.
[2021-10-22 12:05] VITALS: BP 127/74
--- NOTE | 2021-10-22 12:05 | NUR ---
Patient discharged with v/s stable. Written and verbal after care instructions given. Patient alert, oriented and verbalized understanding of instructions. Ambulatory with crutches. All questions addressed prior to discharge. ID band removed. Patient advised to follow up with PMD. Rx of Ibuprofen given. Opportunity to ask questions provided and answered.
--- NOTE | 2021-10-22 12:06 | NUR ---
The patient's care was reviewed and supervised by Delia Sullivan RN.
== END 2021-10-22 12:05 | disposition home or self-care (01) ==
LOC: MED 09:32
DX: S92.351A Displaced fracture of fifth metatarsal bone, right foot, initial encounter for closed fracture (principal); I25.10 Atherosclerotic heart disease of native coronary artery without angina pectoris; E11.9 Type 2 diabetes mellitus without complications; Z87.442 Personal history of urinary calculi; Z79.4 Long term (current) use of insulin; Z79.899 Other long term (current) drug therapy; W18.30XA Fall on same level, unspecified, initial encounter; Y93.89 Activity, other specified; Y92.89 Other specified places as the place of occurrence of the external cause; Y99.8 Other external cause status
CPT/HCPCS: 29515; 73610; 73630; 96372; 99284; J1885

== ENCOUNTER 2022-01-28 12:09 | Observation (INO) | payer OTHER ==
[~2022-01-28] VITALS: Ht 175.3 cm; Wt 77.1 kg
[2022-01-28 12:21] VITALS: BP 152/92
--- NOTE | 2022-01-28 12:36 | NUR ---
PT AMBULATED TO ROOM 8
[2022-01-28] MEDS ORDERED: KETOROLAC 15 MG/ML VIAL IM ONE (13:00)
[2022-01-28 13:26] LABS: BASOPHILS # (AUTO) 0.1 K/uL (0.00-0.22); EOSINOPHILS # (AUTO) 0.1 K/uL (0-0.4); HEMATOCRIT 37.8 % (36-52); HEMOGLOBIN 12.7 g/dL (12.0-18.0); LYMPHOCYTES # (AUTO) 1.2 K/uL (2.0-11.5); LYMPHOCYTES % (AUTO) 15.2 % (20.5-51.1); MEAN CORPUSCULAR HEMOGLOBIN 29 pg (27-31); MEAN CORPUSCULAR HGB CONC 34 g/dL (33-37); MEAN CORPUSCULAR VOLUME 87.5 fL (80-94); MONOCYTES # (AUTO) 0.6 K/uL (0.8-1.0); MONOCYTES % (AUTO) 8.1 % (1.7-9.3); NEUTROPHILS # (AUTO) 5.7 K/uL (1.8-7.7); NEUTROPHILS % (AUTO) 74.7 % (42.2-75.2); PLATELET COUNT (AUTO) 251 K/uL (140-450); RED BLOOD CELL COUNT(AUTO) 4.32 MIL/uL (4.20-6.10); RED CELL DISTRIBUTION WIDTH 14.9 % (11.6-13.7); WHITE BLOOD COUNT (AUTO) 7.6 K/uL (4.8-10.8)
[2022-01-28 13:28] LABS: APPEARANCE,URINE CLEAR (CLEAR); BILIRUBIN,URINE NEGATIVE (NEGATIVE); BLOOD, URINE 3+ (NEGATIVE); COLOR,URINE AMBER (YELLOW); LEUKOCYTE ESTERASE ,URINE TRACE (NEGATIVE); NITRITE, URINE NEGATIVE (NEGATIVE); UGLUCOSE 1+ (NEGATIVE)
[2022-01-28] MEDS ORDERED: KETOROLAC 30 MG/ML VIAL ONE (13:33)
[2022-01-28] MEDS ORDERED: KETOROLAC 30 MG/ML VIAL IVP ONE (13:35)
--- NOTE | 2022-01-28 13:37 | NUR ---
57YO MALE PT C/O SHARP 10/10 LL ABDOMINAL PAIN AND PAULINA FLANK PAIN X3DAYS. REPORTS BURNING DYSURIA AND INCREASE IN FRQUENCY. BACK NON TENDER TO TOUCH. ABDOMEN NON TENDER OR DISTENDED. NOTES HX OF KIDNEY STONES W/ S/S. DENIES TAKING MEDICATION FOR PAIN, N/V/D, CHEST PAIN, FEVR OR CHILLS. HX:HTN, ARTHRITIS , KINDEY STONES, DM2 // 2 CARDIAC STENTS (2019) NKA
--- NOTE | 2022-01-28 13:39 | NUR ---
PT TAKEN TO CT VIA PERNELL
--- NOTE | 2022-01-28 13:49 | NUR ---
PT BACK FROM CT VIA PERNELL
[2022-01-28 13:54] LABS: URIC ACID CRYSTALS,URINE 0-10 /HPF (None Seen)
[2022-01-28 13:57] LABS: FINE GRANULAR CASTS,URINE 0-10 /LPF (None Seen)
[2022-01-28 14:10] LABS: ALBUMIN 3.5 g/dL (3.4-5.0); CARBON DIOXIDE 24.5 mmol/L (21-32); CREATININE 1.9 mg/dL (0.6-1.3); POTASSIUM 4.5 mmol/L (3.5-5.1); TOTAL BILIRUBIN 0.3 mg/dL (0.0-1.0)
[2022-01-28] MEDS ORDERED: NACL 0.9% 1,000 ML IV ONE (14:35)
[2022-01-28] MEDS ORDERED: cefTRIAXone 2,000 MG in DEXTROSE 5% 100 ML IV ONE (14:35)
[2022-01-28] MEDS ORDERED: cefTRIAXone 1,000 MG VIAL ONE (15:22)
[2022-01-28] MEDS ORDERED: cefTRIAXone 2,000 MG VIAL ONE (15:23)
[2022-01-28] MEDS ORDERED: KCL 20 MEQ/WATER INJ PREMIX 200 ML IV PRN (15:25)
[2022-01-28] MEDS ORDERED: POTASSIUM CHLORIDE 10 MEQ TABER PO PRN (15:25)
[2022-01-28] MEDS ORDERED: ACETAMINOPHEN 325 MG TAB PO PRN (15:25)
[2022-01-28] MEDS ORDERED: MAG SULF 2000 MG/WATER PREMIX 50 ML IV PRN (15:25)
[2022-01-28] MEDS ORDERED: ONDANSETRON 4 MG/2 ML VIAL IVP PRN (15:25)
[2022-01-28] MEDS ORDERED: DEXTROSE 50% 50 ML SYR IVP PRN (15:25)
[2022-01-28] MEDS ORDERED: HYDROcodone/APAP 5/325 MG 1 TAB TAB PO PRN (15:25)
[2022-01-28] MEDS ORDERED: MAGNESIUM OXIDE 400 MG TAB PO PRN (15:25)
[2022-01-28] MEDS ORDERED: CYCLOBENZAPRINE 10 MG TAB PO PRN (15:30)
[2022-01-28] MEDS ORDERED: DOCUSATE SODIUM 100 MG GELCAP PO PRN (15:30)
--- NOTE | 2022-01-28 15:30 | NUR ---
pt swabbed for covid(gopal). handed to label sewer
--- NOTE | 2022-01-28 15:41 | NUR ---
DR. PÉREZ, ADMITTING DOCTOR, EVALUATING PATIENT AT BEDSIDE.
--- NOTE | 2022-01-28 15:41 | NUR ---
MD PÉREZ AT BEDSIDE FOR EVALUATION
[2022-01-28] MEDS ORDERED: LOSA100T1 PO (15:59)
[2022-01-28] MEDS ORDERED: METF-1243 PO (15:59)
[2022-01-28] MEDS ORDERED: NITR50CA1 PO (15:59)
[2022-01-28] MEDS ORDERED: GABA300C PO (15:59)
[2022-01-28] MEDS ORDERED: CLOP75TA55 PO (15:59)
[2022-01-28] MEDS ORDERED: METO-251 PO (15:59)
[2022-01-28] MEDS ORDERED: [UNRECOGNIZED DRUG - CODE] PO (15:59)
[2022-01-28] MEDS ORDERED: GLIM2TAB PO (15:59)
--- NOTE | 2022-01-28 15:59 | NUR ---
MED REC DONE.
[2022-01-28] MEDS: NACL 0.9% 1,000 ML IV SCH (16:20)
[2022-01-28] MEDS: BLOOD GLUCOSE MONITORING 1 DEV DEV FS SCH ×2 (16:43→21:22)
--- NOTE | 2022-01-28 18:45 | NUR ---
pt provided with dinner. pt awake, repositioned and eating in bed
[2022-01-28] MEDS: MORPHINE SULFATE 2 MG/ML SYR IVP PRN (19:04)
--- NOTE | 2022-01-28 19:17 | NUR ---
REPORT GIVEN TO MIRTA TOMLINSON. TRANSFER OF CARE AT THIS TIME
--- NOTE | 2022-01-28 19:42 | NUR ---
HANDOFF GIVEN TO DAVI KNOX. TX OF CARE.
--- NOTE | 2022-01-28 19:55 | NUR ---
ASSUMED CARE OF PT AT THIS TIME. REPORT CALLED TO JEAN-PIERRE TOMLINSON WITH FULL RETURNED VERBAL UNDERSTANDING. PT GOING TO 106A. MED-SURG. VSS. PT DENIES ANY PAIN OR NEEDS AT THIS TIME. FLUIDS RUNNING AT 80ML/HR.
--- NOTE | 2022-01-28 21:00 | NUR ---
RECEIVED REPORT FROM HAND ALTERATIONS SEAMSTRESS ABILIO. PT ARRIVED ON MST VIA GURNEY. WALKED TO BED WITH STEADY GAIT. A&OX4. DENIES PAIN. ON RM AIR/O2 WITH NO ACUTE DISTRESS. RR EVEN AND UNLABORED WITH EQUAL CHEST RISE. GI INTACT. AMBULATES TO BATHROOM - CONTINENT. PT'S SKIN IS INTACT. C/O TENDERNESS IN R KIDNEY SAID YESTERDAY THE L KIDNEY HURT MORE. ALSO SAID HIS TESTICLES HURT AND HE HAD A BAD SMELL IN HIS MOUTH. IV RAC 20G INFUSING NS @80CC/HR. HS MEDS GIVEN . VS:T-98.1, P-55, BP-127/75, RR-18, Q3KZY=07% ON RM AIR. OH=197 COVERED WITH 6 UNITS HUMALOG INSULIN PER SLIDING SCALE. ALL SAFETY MEASURES IN PLACE. ADMISSION ASSESSMENT DONE. WILL CONTINUE TO MONITOR.
[2022-01-28] MEDS: carvediloL 3.125 MG TAB PO SCH (21:27)
[2022-01-28] MEDS: INSULIN LISPRO SLIDING SCALE 100 UNITS/ML VIAL SUBQ PRN (21:27)
[2022-01-29] MEDS: NACL 0.9% 1,000 ML IV SCH (04:21)
[2022-01-29] MEDS: MORPHINE SULFATE 2 MG/ML SYR IVP PRN ×2 (04:22→09:26)
--- NOTE | 2022-01-29 06:20 | NUR ---
PT SLEPT SOUNDLY. A&OX4 AMBULATORY INDEPENDENT CONTINENT QB=859 NO INSULIN COVERAGE NEEDED. MEDICATED FOR 7/10 ABD AND FLANK PAIN WITH MORPHINE 2MG IVP AT 0423. EFFECTIVE. SLEEPING AFTER 30 MINUTES. WILL CONTINUE TO MONITOR. ALL SAFETY MEASURES IN PLACE.
[2022-01-29] MEDS: BLOOD GLUCOSE MONITORING 1 DEV DEV FS SCH ×2 (06:46→11:33)
[2022-01-29 07:37] LABS: BASOPHILS % (AUTO) 0.6 % (0.0-2.0); EOSINOPHILS # (AUTO) 0.1 K/uL (0-0.4); EOSINOPHILS % (AUTO) 1.6 % (0.0-4.0); HEMATOCRIT 35.2 % (36-52); HEMOGLOBIN 11.8 g/dL (12.0-18.0); LYMPHOCYTES # (AUTO) 1.3 K/uL (2.0-11.5); LYMPHOCYTES % (AUTO) 26.2 % (20.5-51.1); MEAN CORPUSCULAR HEMOGLOBIN 29 pg (27-31); MEAN CORPUSCULAR HGB CONC 34 g/dL (33-37); MEAN CORPUSCULAR VOLUME 87.4 fL (80-94); MONOCYTES # (AUTO) 0.4 K/uL (0.8-1.0); MONOCYTES % (AUTO) 8.5 % (1.7-9.3); NEUTROPHILS % (AUTO) 63.1 % (42.2-75.2); PLATELET COUNT (AUTO) 232 K/uL (140-450); RED BLOOD CELL COUNT(AUTO) 4.03 MIL/uL (4.20-6.10); RED CELL DISTRIBUTION WIDTH 14.6 % (11.6-13.7); WHITE BLOOD COUNT (AUTO) 4.8 K/uL (4.8-10.8)
--- NOTE | 2022-01-29 07:45 | NUR ---
ENDORSED REPORT TO NURSE GARCIA FOR CONTINUITY OF CARE. PT IS STABLE. ALL NEEDS MET THROUGHOUT THE SHIFT.
[2022-01-29 08:00] VITALS: BP 104/53
[2022-01-29 08:18] LABS: ALBUMIN 2.9 g/dL (3.4-5.0); ANION GAP 15.8 (8-16); CARBON DIOXIDE 19.8 mmol/L (21-32); MAGNESIUM 1.9 mg/dL (1.8-2.4); POTASSIUM 4.6 mmol/L (3.5-5.1); TOTAL BILIRUBIN 0.2 mg/dL (0.0-1.0)
[2022-01-29] MEDS ORDERED: TAMSULOSIN 0.4 MG CAP PO SCH (08:30)
[2022-01-29] MEDS: carvediloL 3.125 MG TAB PO SCH (08:51)
[2022-01-29] MEDS ORDERED: ATORVASTATIN 20 MG TAB PO SCH (09:00)
[2022-01-29] MEDS ORDERED: ASPIRIN 81 MG TAB.CHEW PO SCH (09:00)
--- NOTE | 2022-01-29 09:31 | NUR ---
PATIENT HAS BEEN SCREENED AND CATEGORIZED LOW NUTRITION RISK. PATIENT WILL BE SEEN WITHIN 7 DAYS OF ADMISSION. 02/04/[address]
[2022-01-29] MEDS ORDERED: IBUP-2213 PO (10:58)
[2022-01-29] MEDS ORDERED: CIPR500T4 PO (10:58)
[2022-01-29] MEDS ORDERED: ACET-5634 PO (10:58)
[2022-01-29] MEDS: INSULIN LISPRO SLIDING SCALE 100 UNITS/ML VIAL SUBQ PRN (11:33)
[2022-01-29 11:51] VITALS: BP 106/55
--- NOTE | 2022-01-29 12:55 | NUR ---
DISCHARGE INSTRUCTIONS AND PLAN OF CARE DISCUSSED WITH PATIENT. PATIENT VERBALIZED UNDERSTANDING. IV DISCONTINUED. PATIENT DISCHARGED HOME VIA WHEELCHAIR WITH FAMILY. Rodrigo CHAO RN. Rodrigo CHAO RN.
--- NOTE | 2022-01-31 13:51 | NUR ---
LATE ENTRY- IV NORMAL SALINE DISCONTINUED AT 1954.
== END 2022-01-29 13:04 | disposition home or self-care (01) ==
LOC: MED 12:09 → MMU 15:24 → MTU 18:28
PROVIDERS: ADMIT Internal Medicine; ATTEND Internal Medicine
DX: N12 Tubulo-interstitial nephritis, not specified as acute or chronic (principal); Z20.822 Contact with and (suspected) exposure to COVID-19; N20.0 Calculus of kidney; N17.9 Acute kidney failure, unspecified; I10 Essential (primary) hypertension; E11.9 Type 2 diabetes mellitus without complications; I25.10 Atherosclerotic heart disease of native coronary artery without angina pectoris; Z79.899 Other long term (current) drug therapy
CPT/HCPCS: 36415; 74176; 80053; 81001; 82948; 83690; 83735; 85025; 87040; 87086; 87426; 96361; 96365; 96372; 96375; 96376; 99285; G0378; J0696; J1815; J1885; J2270; J7060

== ENCOUNTER 2022-08-04 10:01 | Emergency (ER) | payer OTHER ==
[~2022-08-04] VITALS: Ht 175.3 cm; Wt 74.8 kg
[~2022-08-04 10:01] MED LIST changes: -CARV3.12 PO; +CIPR500T4 PO; +CLOP75TA55 PO; -CYCL-711 PO; +GABA300C PO; +GLIM2TAB PO; +LOSA100T2 PO; +METF-1243 PO; +METO-251 PO; -TAMS0.4C96 PO; +[UNRECOGNIZED DRUG - CODE] PO
[2022-08-04 10:09] VITALS: BP 120/86
--- NOTE | 2022-08-04 10:22 | NUR ---
Patient arrived to ED 7 for c/o left foot pain and right shoulder pain at home. Patient has PMH: high blood pressure and diabetes. Alert and oriented x3. Respiration even and unlabored. Patient denies taking pain medication prior to arrival. CYNTHIA Dillard at bedside to MSE patient.
[2022-08-04] MEDS ORDERED: KETOROLAC 30 MG/ML VIAL IM ONE (10:25)
--- NOTE | 2022-08-04 10:42 | NUR ---
X-ray at bedside.
--- NOTE | 2022-08-04 11:02 | NUR ---
Report given to EFFIE Graves for continuity of care. Patient stable.
--- NOTE | 2022-08-04 11:36 | NUR ---
CYNTHIA KENDALL AT BEDSIDE.
--- NOTE | 2022-08-04 11:39 | NUR ---
The patient's care was reviewed and supervised by KIMO WEBER RN.
[2022-08-04] MEDS ORDERED: IBUP-2213 PO (11:50)
[2022-08-04 12:14] VITALS: BP 123/90
--- NOTE | 2022-08-04 12:16 | NUR ---
Patient discharged with v/s stable. Written and verbal after care instructions given and explained. Patient alert, oriented and verbalized understanding of instructions. Ambulatory with steady gait. All questions addressed prior to discharge. ID band removed. Patient advised to follow up with PMD. Rx of IBUPROFEN given. Opportunity to ask questions provided and answered.
== END 2022-08-04 12:14 | disposition home or self-care (01) ==
LOC: MED 10:01
DX: S46.911A Strain of unspecified muscle, fascia and tendon at shoulder and upper arm level, right arm, initial encounter (principal); M79.672 Pain in left foot; E11.9 Type 2 diabetes mellitus without complications; Z95.5 Presence of coronary angioplasty implant and graft; Z79.899 Other long term (current) drug therapy; Z79.1 Long term (current) use of non-steroidal anti-inflammatories (NSAID); Z79.2 Long term (current) use of antibiotics; Z79.01 Long term (current) use of anticoagulants; Z79.82 Long term (current) use of aspirin; I10 Essential (primary) hypertension; W01.0XXA Fall on same level from slipping, tripping and stumbling without subsequent striking against object, initial encounter; Y93.89 Activity, other specified; Y92.096 Garden or yard of other non-institutional residence as the place of occurrence of the external cause; Y99.8 Other external cause status
CPT/HCPCS: 29515; 73030; 73630; 96372; 99284; J1885; Q0092

== ENCOUNTER 2022-11-06 23:20 | Inpatient (IN) | payer OTHER ==
[~2022-11-06] VITALS: Ht 175.3 cm; Wt 72.6 kg
[~2022-11-06 23:20] MED LIST changes: +ACET-8905 PO; +TAMS0.4C96 PO
[2022-11-06 23:42] VITALS: BP 143/88; PULSE 61; RESP 20; TEMP 98; O2SAT 99
--- NOTE | 2022-11-07 | NUR ---
PT TAKEN TO BED
--- NOTE | 2022-11-07 | NUR ---
Pt BIB self with c/o left lower abdominal pain started yesterday.Concious. AAOx4. PMHx of renal disease, HTN, Cardiac Disease and DM. Denies ay allergies.
--- NOTE | 2022-11-07 00:30 | NUR ---
Ambulate to restroom.
[2022-11-07 00:44] LABS: APPEARANCE,URINE CLEAR (CLEAR); BILIRUBIN,URINE NEGATIVE (NEGATIVE); BLOOD, URINE 3+ (NEGATIVE); COLOR,URINE RED (YELLOW); LEUKOCYTE ESTERASE ,URINE 1+ (NEGATIVE); NITRITE, URINE NEGATIVE (NEGATIVE); UGLUCOSE NEGATIVE (NEGATIVE)
[2022-11-07] MEDS ORDERED: cefTRIAXone 1,000 MG VIAL ONE (01:43)
[2022-11-07] MEDS ORDERED: ONDANSETRON 4 MG/2 ML VIAL IVP ONE (01:45)
[2022-11-07] MEDS ORDERED: KETOROLAC 30 MG/ML VIAL IVP ONE (01:45)
[2022-11-07] MEDS ORDERED: NACL 0.9% 1,000 ML IV ONE (01:45)
[2022-11-07 01:54] LABS: BASOPHILS % (AUTO) 0.8 % (0.0-2.0); EOSINOPHILS % (AUTO) 0.8 % (0.0-4.0); HEMATOCRIT 36.6 % (36-52); HEMOGLOBIN 12.3 g/dL (12.0-18.0); LYMPHOCYTES # (AUTO) 1.5 K/uL (2.0-11.5); LYMPHOCYTES % (AUTO) 30.1 % (20.5-51.1); MEAN CORPUSCULAR HEMOGLOBIN 29 pg (27-31); MEAN CORPUSCULAR HGB CONC 34 g/dL (33-37); MEAN CORPUSCULAR VOLUME 86.4 fL (80-94); MONOCYTES # (AUTO) 0.4 K/uL (0.8-1.0); MONOCYTES % (AUTO) 9.2 % (1.7-9.3); NEUTROPHILS # (AUTO) 2.9 K/uL (1.8-7.7); NEUTROPHILS % (AUTO) 59.1 % (42.2-75.2); PLATELET COUNT (AUTO) 182 K/uL (140-450); RED BLOOD CELL COUNT(AUTO) 4.24 MIL/uL (4.20-6.10); RED CELL DISTRIBUTION WIDTH 16.2 % (11.6-13.7); WHITE BLOOD COUNT (AUTO) 4.8 K/uL (4.8-10.8)
[2022-11-07 02:07] LABS: ALBUMIN 3.3 g/dL (3.4-5.0); ANION GAP 11.5 (8-16); CARBON DIOXIDE 22.8 mmol/L (21-32); CREATININE 1.6 mg/dL (0.6-1.3); POTASSIUM 4.3 mmol/L (3.5-5.1); TOTAL BILIRUBIN 0.5 mg/dL (0.0-1.0)
--- NOTE | 2022-11-07 02:25 | NUR ---
Pt on bed awake and oriented. All ordered meds given. Kept comfortable and all needs attended.
--- NOTE | 2022-11-07 02:35 | NUR ---
To Ct via [facility]
--- NOTE | 2022-11-07 02:36 | NUR ---
PT TO CT
--- NOTE | 2022-11-07 02:46 | NUR ---
Back from CT
--- NOTE | 2022-11-07 03:56 | NUR ---
Pt asleep on bed. With Chest rise and fall noted.
[2022-11-07] MEDS ORDERED: ACETAMINOPHEN 325 MG TAB PO PRN (05:20)
[2022-11-07] MEDS ORDERED: HYDROcodone/APAP 5/325 MG 1 TAB TAB PO PRN (05:20)
[2022-11-07] MEDS ORDERED: ONDANSETRON 4 MG/2 ML VIAL IVP PRN (05:20)
[2022-11-07] MEDS ORDERED: ZOLPIDEM 5 MG TAB PO PRN (05:20)
[2022-11-07] MEDS ORDERED: LORazepam 1 MG TAB PO PRN (05:20)
[2022-11-07] MEDS ORDERED: LOSA100T2 PO (06:43)
[2022-11-07] MEDS ORDERED: NITR50CA1 PO (06:43)
[2022-11-07] MEDS ORDERED: DOCU-299 PO (06:43)
--- NOTE | 2022-11-07 07:25 | NUR ---
REPORT RECEIVED FROM SANDRA TOMLINSON. ASSUMED CARE AT THIS TIME
[2022-11-07] MEDS: DEXT 5% /NACL 0.9% 1,000 ML IV SCH ×3 (07:39→21:20)
--- NOTE | 2022-11-07 07:40 | NUR ---
pt at rest w/ eyes closed. denies pain at this time. on associate school psychologist. bed at lowest position, bed rails upx2. call light within reach.
[2022-11-07 08:00] VITALS: O2SAT 96
[2022-11-07] MEDS ORDERED: DEXTROSE 50% 50 ML SYR IVP PRN (08:45)
[2022-11-07] MEDS ORDERED: INSULIN LISPRO SLIDING SCALE 100 UNITS/ML VIAL SUBQ PRN (08:45)
--- NOTE | 2022-11-07 08:51 | NUR ---
PATIENT HAS BEEN SCREENED AND CATEGORIZED LOW NUTRITION RISK. PATIENT WILL BE SEEN WITHIN 7 DAYS OF ADMISSION. 11/14/[address]
[2022-11-07] MEDS: TAMSULOSIN 0.4 MG CAP PO SCH (09:06)
[2022-11-07] MEDS: ATORVASTATIN 20 MG TAB PO SCH (09:06)
[2022-11-07] MEDS: DOCUSATE SODIUM 100 MG GELCAP PO SCH ×2 (09:06→20:27)
--- NOTE | 2022-11-07 09:06 | NUR ---
pt ambulatory to restroom
[2022-11-07] MEDS: METOPROLOL 50 MG TAB PO SCH (09:08)
--- NOTE | 2022-11-07 09:11 | NUR ---
pt ambulatory back to room
--- NOTE | 2022-11-07 09:21 | NUR ---
pt provided w/ hygiene products. left at bedside
--- NOTE | 2022-11-07 09:50 | NUR ---
MD PÉREZ AT BEDSIDE FOR EVALUATION
[2022-11-07] MEDS: BLOOD GLUCOSE MONITORING 1 DEV DEV FS SCH ×3 (11:49→20:23)
[2022-11-07 12:02] VITALS: O2SAT 96
[2022-11-07] MEDS ORDERED: PIPERACILLIN/TAZOBACTAM 3.375 GM VIAL IV ONE (12:09)
[2022-11-07] MEDS: PIPERACILLIN/TAZOBACTAM 3.375 GM in DEXTROSE 5% 50 ML IV SCH ×3 (12:18→23:42)
--- NOTE | 2022-11-07 13:55 | NUR ---
pt c/o new abd pain onset. hob repositioned per comfort. to be medicated per order.
[2022-11-07] MEDS: MORPHINE SULFATE 4 MG/ML SYR IVP PRN ×2 (13:58→21:54)
--- NOTE | 2022-11-07 15:00 | NUR ---
pt at rest w/ eyes closed. respirations even and unlabored. on manager battery. bed at lowest position, bed rails upx2. call light within reach
--- NOTE | 2022-11-07 15:59 | NUR ---
Patient will be admitted to care of MD PÉREZ. Admited to TELE. Will go to room 119A. Belongings list completed. Report to LISA RN.
--- NOTE | 2022-11-07 16:05 | NUR ---
RECEIVED PATIENT FROM ED ON [facility]. PATIENT AWAKE ABLE TO AMBULATE BUT WITH UNSTEADY GAIT. PATIENT VITALS NORMAL
[2022-11-07 16:30] VITALS: RESP 17; O2SAT 98
--- NOTE | 2022-11-07 16:49 | NUR ---
DC PLANN[age] YRS OLD MALE PATIENT WAS ADMITTED FROM HOME WITH A DX OF UTI OBSTRUCTING STONE. CT ABD SHOWED OBSTRUCTIVE [id number] CALCULUS WITHIN THE LEFT DISTAL URETER. UA HAS BACTERIA. ADMINISTERED IVF IV ABX ZOSYN AND CONTINUED HOME MEDS. CONSULTED WITH NEPHRO AND UROLOGIST. DC PLAN TO GO HOME WHEN STABLE. CM TO FOLLOW
[2022-11-07 17:34] VITALS: PULSE 80; RESP 17; O2SAT 98
--- NOTE | 2022-11-07 18:40 | NUR ---
PATIENT DIET CHANGED TO CARDIAC AND NPO AFTER MIDNIGHT FOR UROLOGIST CONSULT TOMORROW
--- NOTE | 2022-11-07 19:30 | NUR ---
ENDORSED PATIENT TO PM NURSE FOR CONTINUATION OF CARE. PATIENT SEEN EATING DINNER, VERBALIZED NO CONCERNS
[2022-11-07 20:00] VITALS: BP 119/75; PULSE 62; PULSE 65; RESP 15; TEMP 96.9; O2SAT 99
[2022-11-08] VITALS: BP 129/79; PULSE 49; PULSE 52; RESP 16; TEMP 96.6; O2SAT 99
[2022-11-08 04:00] VITALS: BP 124/74; PULSE 47; PULSE 58; RESP 18; O2SAT 95
[2022-11-08] MEDS: DEXT 5% /NACL 0.9% 1,000 ML IV SCH (05:20)
[2022-11-08 05:25] LABS: BASOPHILS % (AUTO) 0.7 % (0.0-2.0); EOSINOPHILS % (AUTO) 0.8 % (0.0-4.0); HEMATOCRIT 38.3 % (36-52); HEMOGLOBIN 12.7 g/dL (12.0-18.0); LYMPHOCYTES # (AUTO) 1.3 K/uL (2.0-11.5); LYMPHOCYTES % (AUTO) 27.1 % (20.5-51.1); MEAN CORPUSCULAR HEMOGLOBIN 29 pg (27-31); MEAN CORPUSCULAR HGB CONC 33 g/dL (33-37); MONOCYTES # (AUTO) 0.5 K/uL (0.8-1.0); MONOCYTES % (AUTO) 10.1 % (1.7-9.3); NEUTROPHILS # (AUTO) 2.9 K/uL (1.8-7.7); NEUTROPHILS % (AUTO) 61.3 % (42.2-75.2); PLATELET COUNT (AUTO) 206 K/uL (140-450); RED BLOOD CELL COUNT(AUTO) 4.41 MIL/uL (4.20-6.10); WHITE BLOOD COUNT (AUTO) 4.7 K/uL (4.8-10.8)
[2022-11-08 05:56] LABS: ANION GAP 14.5 (8-16); CARBON DIOXIDE 23.3 mmol/L (21-32); CREATININE 1.7 mg/dL (0.6-1.3); POTASSIUM 4.8 mmol/L (3.5-5.1)
[2022-11-08] MEDS: PIPERACILLIN/TAZOBACTAM 3.375 GM in DEXTROSE 5% 50 ML IV SCH ×2 (06:26→11:11)
[2022-11-08] MEDS: BLOOD GLUCOSE MONITORING 1 DEV DEV FS SCH (06:26)
[2022-11-08] MEDS ORDERED: NACL 0.9% 1,000 ML IV SCH (07:35)
[2022-11-08 08:00] VITALS: BP 141/73; PULSE 51; PULSE 64; RESP 18; O2SAT 95
[2022-11-08] MEDS ORDERED: TAMS0.4C96 PO (09:42)
[2022-11-08] MEDS ORDERED: ACET-8905 PO (09:42)
[2022-11-08] MEDS ORDERED: CIPR500T4 PO (09:45)
[2022-11-08] MEDS: ATORVASTATIN 20 MG TAB PO SCH (11:12)
[2022-11-08] MEDS: METOPROLOL 50 MG TAB PO SCH (11:12)
[2022-11-08] MEDS: DOCUSATE SODIUM 100 MG GELCAP PO SCH (11:12)
[2022-11-08] MEDS: TAMSULOSIN 0.4 MG CAP PO SCH (11:14)
[2022-11-08 11:38] VITALS: BP 141/73; PULSE 64; RESP 18; TEMP 96.6
--- NOTE | 2022-11-09 12:35 | NUR ---
CALLED DR OSCAR ESQUEDA LOCATED AT [address] [facility] [address] [place] [address]. SPOKE WITH LUANNE WHO WAS ABLE TO HELP ME SCHEDULE A HOSPITAL FOLLOW UP APPOINTMENT FOR 11/28/2022 AT 1530. CALLED PATIENT BUT GOT NO ANSWER AND UNABLE TO LEAVE MESSAGE SO CALLED PTO CHRISTIAN WHO ALSO DIDN'T ANSWER BUT WAS ABLE TO LEAVE MESSAGE REGARDING THE ABOVE INFORMATION. RECEIVED ORDER FOR PATIENT TO FOLLOW UP WITH DR CHERRY IN [address] CAMERON BEAL IN [address] PARTIDA OFFICE LOCATED AT [address] [facility] [address]. WAS ABLE TO SCHEDULE A FOLLOW IUP APPOINTMENT FOR 11/16/2022 AT 0900. PATIENT AND WERE VERBALLY INFORMED AND GIVEN AN APPOINTMENT SLIP WITH THE SAME INFORMATION. CALLED DR CAMERON BEAL OFFICE LOCATED AT [address] [facility] [address] [place] [address] WAS ABLE TO SCHEDULE A FOLLOW UP APPOINTMENT FOR 12/05/2022 TIME IS PENDING [facility] OFFICE SAID THE WILL GET IN TOUCH WITH PATIENT TO GIVE APPOINTMENT TIME. WENT TO BEDSIDE TO VERBAL INFORM PATENT WELL GIVE AN APPOINTMENT SLIP REGARDING THE ABOVE INFORMATION. I ALSO INFORMED THEY IF THEY DON'T HEAR BACK FROM DRS OFFICE TO GIVE THEM A CALL FOR APPOINTMENT TIME.
== END 2022-11-08 12:42 | disposition home or self-care (01) | DRG 463 ==
LOC: MED 23:20 → MTU 11-07 05:25
PROVIDERS: ADMIT Internal Medicine; ATTEND Internal Medicine
DX: N13.6 Pyonephrosis (principal); N17.9 Acute kidney failure, unspecified; E44.1 Mild protein-calorie malnutrition; E87.1 Hypo-osmolality and hyponatremia; E78.00 Pure hypercholesterolemia, unspecified; I10 Essential (primary) hypertension; E11.9 Type 2 diabetes mellitus without complications; I25.10 Atherosclerotic heart disease of native coronary artery without angina pectoris; Z95.5 Presence of coronary angioplasty implant and graft; Z79.899 Other long term (current) drug therapy; Z87.442 Personal history of urinary calculi; Z79.82 Long term (current) use of aspirin; Z68.23 Body mass index [BMI] 23.0-23.9, adult
CPT/HCPCS: 36415; 80048; 80053; 81001; 82948; 83690; 83735; 84484; 85025; 87040; 87081; 87086; 93005; 96365; 96375; 99285; J0696; J1815; J1885; J2270; J2405; J2543; J7060

== ENCOUNTER 2023-04-13 20:40 | Inpatient (IN) | payer OTHER ==
[~2023-04-13] VITALS: Ht 177.8 cm; Wt 68.0 kg
[~2023-04-13 20:40] MED LIST changes: -ACET-5634 PO; +GLIM-24 PO; -GLIM2TAB PO; -IBUP-2213 PO; -LOSA100T2 PO; -[UNRECOGNIZED DRUG - CODE] PO
[2023-04-13 20:58] VITALS: BP 150/81; PULSE 74; RESP 12; TEMP 97.8; O2SAT 93
[2023-04-13] MEDS ORDERED: MORPHINE SULFATE 4 MG/ML SYR IVP ONE (21:45)
[2023-04-13] MEDS ORDERED: ONDANSETRON 4 MG/2 ML VIAL IVP ONE (21:45)
[2023-04-13 21:56] LABS: BASOPHILS # (AUTO) 0.1 K/uL (0.00-0.22); BASOPHILS % (AUTO) 0.8 % (0.0-2.0); EOSINOPHILS # (AUTO) 0.1 K/uL (0-0.4); EOSINOPHILS % (AUTO) 0.5 % (0.0-4.0); HEMATOCRIT 43.2 % (36-52); HEMOGLOBIN 14.4 g/dL (12.0-18.0); LYMPHOCYTES # (AUTO) 1.6 K/uL (2.0-11.5); LYMPHOCYTES % (AUTO) 16.4 % (20.5-51.1); MEAN CORPUSCULAR HEMOGLOBIN 29 pg (27-31); MEAN CORPUSCULAR HGB CONC 33 g/dL (33-37); MEAN CORPUSCULAR VOLUME 86.7 fL (80-94); MONOCYTES # (AUTO) 1.1 K/uL (0.8-1.0); NEUTROPHILS # (AUTO) 6.9 K/uL (1.8-7.7); NEUTROPHILS % (AUTO) 71.3 % (42.2-75.2); PLATELET COUNT (AUTO) 182 K/uL (140-450); RED BLOOD CELL COUNT(AUTO) 4.99 MIL/uL (4.20-6.10); RED CELL DISTRIBUTION WIDTH 15.2 % (11.6-13.7); WHITE BLOOD COUNT (AUTO) 9.7 K/uL (4.8-10.8)
[2023-04-13 22:04] LABS: APPEARANCE,URINE CLEAR (CLEAR); BILIRUBIN,URINE NEGATIVE (NEGATIVE); BLOOD, URINE 3+ (NEGATIVE); COLOR,URINE YELLOW (YELLOW); LEUKOCYTE ESTERASE ,URINE NEGATIVE (NEGATIVE); NITRITE, URINE POSITIVE (NEGATIVE); PROTEIN,URINE TRACE (NEGATIVE); UGLUCOSE 2+ (NEGATIVE); UROBILINOGEN,URINE 0.2 EU/dL (0.2 - 1)
[2023-04-13 22:17] LABS: BACTERIA,URINE 1+ /HPF (None Seen); MUCUS,URINE 1+ /LPF (None Seen); RBC,URINE 20-50 /HPF (0-5); SQUAMOUS EPITHELIAL CELL,UR 4-10 (MOD) /LPF (0-3 (FEW)); TRICHOMONAS,URINE None Seen /HPF (None Seen); WBC,URINE 0-5 /HPF (0-5); YEAST,URINE None Seen /HPF (None Seen)
[2023-04-13 22:30] LABS: ANION GAP 12.9 (8-16); CARBON DIOXIDE 26.1 mmol/L (21-32); CREATININE 1.4 mg/dL (0.6-1.3)
[2023-04-13] MEDS ORDERED: NACL 0.9% 1,000 ML IV ONE (22:35)
[2023-04-13 22:45] LABS: ALBUMIN 3.2 g/dL (3.4-5.0); BILIRUBIN,DIRECT 0.1 mg/dL (0.0-0.3); TOTAL BILIRUBIN 0.5 mg/dL (0.0-1.0); TOTAL PROTEIN, SERUM 8.1 g/dL (6.4-8.2)
[2023-04-14] MEDS ORDERED: LORazepam 1 MG TAB PO PRN (03:30)
[2023-04-14] MEDS ORDERED: ONDANSETRON 4 MG/2 ML VIAL IVP PRN (03:30)
[2023-04-14] MEDS ORDERED: HYDROcodone/APAP 5/325 MG 1 TAB TAB PO PRN (03:30)
[2023-04-14] MEDS ORDERED: DEXT 5% /NACL 0.9% 1,000 ML IV SCH (03:30)
[2023-04-14] MEDS ORDERED: ZOLPIDEM 5 MG TAB PO PRN (03:30)
[2023-04-14] MEDS ORDERED: MAG SULF 2000 MG/WATER PREMIX 50 ML IV PRN (03:30)
[2023-04-14] MEDS ORDERED: POTASSIUM CHLORIDE 10 MEQ TABER PO PRN (03:30)
[2023-04-14] MEDS ORDERED: KCL 20 MEQ IN 100 mL PREMIX 200 ML IV PRN (03:30)
[2023-04-14] MEDS ORDERED: ACETAMINOPHEN 325 MG TAB PO PRN (03:30)
[2023-04-14] MEDS: MORPHINE SULFATE 4 MG/ML SYR IVP PRN ×2 (05:20→12:17)
[2023-04-14] MEDS ORDERED: cefTRIAXone 1,000 MG VIAL ONE (05:30)
[2023-04-14 16:30] VITALS: BP 126/74; PULSE 102; PULSE 64; RESP 18; TEMP 98; O2SAT 95
[2023-04-14 17:46] VITALS: PULSE 64; RESP 18; O2SAT 95
== END 2023-04-14 18:50 | disposition home or self-care (01) | DRG 463 ==
LOC: MED 20:40 → MTU 04-14 03:37
PROVIDERS: ADMIT Internal Medicine; ATTEND Internal Medicine
DX: N13.6 Pyonephrosis (principal); N17.9 Acute kidney failure, unspecified; E44.1 Mild protein-calorie malnutrition; N20.1 Calculus of ureter; E11.9 Type 2 diabetes mellitus without complications; I10 Essential (primary) hypertension; I25.10 Atherosclerotic heart disease of native coronary artery without angina pectoris; E78.5 Hyperlipidemia, unspecified; Z87.442 Personal history of urinary calculi; Z68.21 Body mass index [BMI] 21.0-21.9, adult
CPT/HCPCS: 36415; 74018; 80048; 80076; 81001; 83690; 85025; 87081; 87086; 96361; 96374; 96375; 99285; J0696; J2270; J2405; J7060

== ENCOUNTER 2023-12-22 15:48 | Inpatient (IN) | payer OTHER ==
[~2023-12-22] VITALS: Ht 170.2 cm; Wt 79.4 kg
[2023-12-22 15:54] VITALS: BP 132/98; PULSE 58; RESP 18; TEMP 97.3; O2SAT 100
[2023-12-22] MEDS: NACL 0.9% 1,000 ML IV ONE ×2 (16:15→20:10)
[2023-12-22] MEDS: KETOROLAC 30 MG/ML VIAL IVP ONE ×2 (16:20→20:13)
[2023-12-22 17:19] LABS: BILIRUBIN,URINE NEGATIVE (NEGATIVE); BLOOD, URINE 3+ (NEGATIVE); COLOR,URINE YELLOW (YELLOW); LEUKOCYTE ESTERASE ,URINE NEGATIVE (NEGATIVE); NITRITE, URINE NEGATIVE (NEGATIVE); PROTEIN,URINE TRACE (NEGATIVE); UGLUCOSE 1+ (NEGATIVE); UROBILINOGEN,URINE 0.2 EU/dL (0.2 - 1)
[2023-12-22 17:20] LABS: APPEARANCE,URINE SLIGHTLY HAZY (CLEAR)
[2023-12-22 17:21] LABS: WBC,URINE 0-5 /HPF (0-5)
[2023-12-22 17:22] LABS: BACTERIA,URINE 2+ /HPF (None Seen); MUCUS,URINE None Seen /LPF (None Seen); SQUAMOUS EPITHELIAL CELL,UR 0-3 (FEW) /LPF (0-3 (FEW))
[2023-12-22 18:40] VITALS: O2SAT 96
[2023-12-22 19:33] LABS: BASOPHILS # (AUTO) 0.1 K/uL (0.00-0.22); EOSINOPHILS # (AUTO) 0.2 K/uL (0-0.4); EOSINOPHILS % (AUTO) 1.9 % (0.0-4.0); HEMATOCRIT 40.9 % (36-52); LYMPHOCYTES # (AUTO) 2.2 K/uL (2.0-11.5); LYMPHOCYTES % (AUTO) 17.8 % (20.5-51.1); MEAN CORPUSCULAR HEMOGLOBIN 24 pg (27-31); MEAN CORPUSCULAR HGB CONC 32 g/dL (33-37); MEAN CORPUSCULAR VOLUME 74.7 fL (80-94); MONOCYTES # (AUTO) 1.2 K/uL (0.8-1.0); MONOCYTES % (AUTO) 9.5 % (1.7-9.3); NEUTROPHILS # (AUTO) 8.7 K/uL (1.8-7.7); NEUTROPHILS % (AUTO) 69.8 % (42.2-75.2); PLATELET COUNT (AUTO) 193 K/uL (140-450); RED BLOOD CELL COUNT(AUTO) 5.47 MIL/uL (4.20-6.10); RED CELL DISTRIBUTION WIDTH 19.5 % (11.6-13.7); WHITE BLOOD COUNT (AUTO) 12.5 K/uL (4.8-10.8)
[2023-12-22 19:53] LABS: ANION GAP 16.5 (8-16); CALCIUM 9.2 mg/dL (8.5-10.1); CARBON DIOXIDE 21.4 mmol/L (21-32); CREATININE 0.9 mg/dL (0.6-1.3); POTASSIUM 4.9 mmol/L (3.5-5.1)
[2023-12-22 19:59] VITALS: O2SAT 96
[2023-12-22] MEDS ORDERED: cefTRIAXone 1,000 MG VIAL ONE (20:05)
[2023-12-22] MEDS ORDERED: KETOROLAC 15 MG/ML VIAL ONE (20:07)
[2023-12-22] MEDS: MORPHINE SULFATE 4 MG/ML SYR IVP ONE (21:23)
[2023-12-22] MEDS ORDERED: MAG SULF 2000 MG/WATER PREMIX 50 ML IV PRN (21:40)
[2023-12-22] MEDS ORDERED: ONDANSETRON 4 MG/2 ML VIAL IVP PRN (21:40)
[2023-12-22] MEDS ORDERED: KCL 20 MEQ IN 100 mL PREMIX 200 ML IV PRN (21:40)
[2023-12-22] MEDS ORDERED: ACETAMINOPHEN 325 MG TAB PO PRN (21:40)
[2023-12-22] MEDS ORDERED: POTASSIUM CHLORIDE 10 MEQ TABER PO PRN (21:40)
[2023-12-22] MEDS: NACL 0.9% 1,000 ML IV SCH (22:05)
[2023-12-23 00:16] VITALS: O2SAT 96
[2023-12-23] MEDS ORDERED: XALOS OP (00:36)
[2023-12-23] MEDS ORDERED: [UNRECOGNIZED DRUG - CODE] SUBQ (00:36)
[2023-12-23] MEDS ORDERED: [UNRECOGNIZED DRUG - CODE] PO (00:36)
[2023-12-23] MEDS ORDERED: GABA300C PO (00:36)
[2023-12-23] MEDS ORDERED: ACET-1182 PO (00:36)
[2023-12-23] MEDS ORDERED: ASPI-1749 PO (00:36)
[2023-12-23] MEDS ORDERED: GINK125C PO (00:36)
[2023-12-23] MEDS ORDERED: METO50TA20 PO (00:36)
[2023-12-23] MEDS ORDERED: FOLI1TAB90 PO (00:36)
[2023-12-23] MEDS ORDERED: DIPH25CA94 PO (00:36)
[2023-12-23] MEDS ORDERED: OMEG1CAP53 PO (00:36)
[2023-12-23] MEDS ORDERED: [UNRECOGNIZED DRUG - CODE] SQ (00:36)
[2023-12-23] MEDS ORDERED: METF-346 PO (00:36)
[2023-12-23] MEDS ORDERED: DOCU-299 PO (00:36)
[2023-12-23] MEDS ORDERED: SACC250C10 PO (00:36)
[2023-12-23] MEDS ORDERED: HUM7525 SUBQ (00:36)
[2023-12-23 01:20] VITALS: BP 143/90; PULSE 56; RESP 18; TEMP 96.9; O2SAT 100
[2023-12-23] MEDS: MORPHINE SULFATE 4 MG/ML SYR IVP PRN (01:45)
[2023-12-23 04:00] VITALS: BP 132/78; PULSE 60; RESP 18; TEMP 96.8; O2SAT 95
[2023-12-23 05:52] LABS: ALBUMIN 3.1 g/dL (3.4-5.0); ANION GAP 14.1 (8-16); CALCIUM 8.2 mg/dL (8.5-10.1); CARBON DIOXIDE 23.7 mmol/L (21-32); CREATININE 1.1 mg/dL (0.6-1.3); MAGNESIUM 1.6 mg/dL (1.8-2.4); POTASSIUM 3.8 mmol/L (3.5-5.1); TOTAL BILIRUBIN 0.3 mg/dL (0.0-1.0); TOTAL PROTEIN, SERUM 6.7 g/dL (6.4-8.2)
[2023-12-23 05:58] LABS: HEMOGLOBIN 12.5 g/dL (12.0-18.0); MEAN CORPUSCULAR HEMOGLOBIN 24 pg (27-31); MEAN CORPUSCULAR HGB CONC 32 g/dL (33-37); MEAN CORPUSCULAR VOLUME 75.5 fL (80-94); PLATELET COUNT (AUTO) 236 K/uL (140-450); RED BLOOD CELL COUNT(AUTO) 5.16 MIL/uL (4.20-6.10); RED CELL DISTRIBUTION WIDTH 19.6 % (11.6-13.7)
[2023-12-23 07:35] LABS: ANISOCYTOSIS 1+; BASOPHILS % (MANUAL) 0 % (0-2); BLASTS, MANUAL % 0 % (0-0); BURR CELLS 1+; EOSINOPHILS % (MANUAL) 0 % (0-4); LYMPHOCYTES % (MANUAL) 5 % (20-46); METAMYELOCYTES % 0 % (0-0); MONOCYTES % (MANUAL) 3 % (5-12); MYELOCYTES % 0 % (0-0); OTHER CELLS,MANUAL % 0 (0-0); OVALOCYTES 1+; PLASMA CELLS 0; PLATELET ESTIMATE ADEQUATE; PROMYELOCYTES % 0 % (0-0); SMUDGE CELLS 0
[2023-12-23 08:00] VITALS: BP 144/90; PULSE 56; PULSE 78; RESP 18; RESP 20; TEMP 96.6; O2SAT 100; O2SAT 95
[2023-12-23] MEDS: DOCUSATE SODIUM 100 MG GELCAP PO SCH (08:58)
[2023-12-23 16:00] VITALS: BP 140/87; PULSE 76; RESP 20; TEMP 97.5; O2SAT 97
[2023-12-23] MEDS: MAGNESIUM OXIDE 400 MG TAB PO PRN (17:10)
[2023-12-23] MEDS: TAMSULOSIN 0.4 MG CAP PO SCH (17:11)
[2023-12-23 20:00] VITALS: BP 138/74; PULSE 56; PULSE 74; RESP 19; TEMP 97.4; O2SAT 97
[2023-12-23] MEDS: HYDROcodone/APAP 5/325 MG 1 TAB TAB PO PRN (20:09)
[2023-12-23] MEDS: MEDS-TO-BEDS MC SCH (21:00)
[2023-12-24 01:36] VITALS: BP 132/68; PULSE 72; RESP 20; TEMP 98; O2SAT 98
[2023-12-24 05:10] LABS: BASOPHILS % (AUTO) 0.3 % (0.0-2.0); EOSINOPHILS # (AUTO) 0.1 K/uL (0-0.4); EOSINOPHILS % (AUTO) 1.7 % (0.0-4.0); HEMATOCRIT 36.9 % (36-52); HEMOGLOBIN 11.9 g/dL (12.0-18.0); LYMPHOCYTES # (AUTO) 1.2 K/uL (2.0-11.5); LYMPHOCYTES % (AUTO) 15.7 % (20.5-51.1); MEAN CORPUSCULAR HEMOGLOBIN 24 pg (27-31); MEAN CORPUSCULAR HGB CONC 32 g/dL (33-37); MEAN CORPUSCULAR VOLUME 74.6 fL (80-94); MONOCYTES # (AUTO) 0.9 K/uL (0.8-1.0); MONOCYTES % (AUTO) 11.3 % (1.7-9.3); NEUTROPHILS # (AUTO) 5.6 K/uL (1.8-7.7); PLATELET COUNT (AUTO) 214 K/uL (140-450); RED BLOOD CELL COUNT(AUTO) 4.95 MIL/uL (4.20-6.10); RED CELL DISTRIBUTION WIDTH 19.7 % (11.6-13.7); WHITE BLOOD COUNT (AUTO) 7.9 K/uL (4.8-10.8)
[2023-12-24 05:36] LABS: ALBUMIN 2.6 g/dL (3.4-5.0); ANION GAP 11.2 (8-16); CARBON DIOXIDE 23.7 mmol/L (21-32); CREATININE 1.5 mg/dL (0.6-1.3); MAGNESIUM 1.9 mg/dL (1.8-2.4); POTASSIUM 3.9 mmol/L (3.5-5.1); TOTAL BILIRUBIN 0.3 mg/dL (0.0-1.0); TOTAL PROTEIN, SERUM 6.3 g/dL (6.4-8.2)
[2023-12-24 08:00] VITALS: BP 136/83; PULSE 56; PULSE 67; RESP 18; RESP 19; TEMP 97.1; O2SAT 96; O2SAT 97
[2023-12-24] MEDS ORDERED: KETO10TA2 PO (16:18)
== END 2023-12-24 17:00 | disposition home or self-care (01) | DRG 465 ==
LOC: MED 15:48 → MMU 21:41 → MTU 22:50
PROVIDERS: ADMIT Hospitalist; ATTEND Hospitalist
DX: N13.2 Hydronephrosis with renal and ureteral calculous obstruction (principal); N17.0 Acute kidney failure with tubular necrosis; D72.829 Elevated white blood cell count, unspecified; K44.9 Diaphragmatic hernia without obstruction or gangrene; K57.90 Diverticulosis of intestine, part unspecified, without perforation or abscess without bleeding; Z95.5 Presence of coronary angioplasty implant and graft; Z79.82 Long term (current) use of aspirin; Z95.1 Presence of aortocoronary bypass graft; Z79.899 Other long term (current) drug therapy; Z87.442 Personal history of urinary calculi; Z79.84 Long term (current) use of oral hypoglycemic drugs
CPT/HCPCS: 36415; 80048; 80053; 81001; 83735; 85025; 87081; 96361; 96365; 96375; 96376; 99285; J0696; J1644; J1885; J2270; J7060